=== PATIENT | male | born 1970 | race Caucasian/White ===

== ENCOUNTER 2021-05-15 16:27 | Emergency (ER) | payer BC ==
[2021-05-15] MEDS ORDERED: CASIRIVIMAB/IMDEVIMAB 10 ML VIAL ONE (17:09)
[2021-05-15] MEDS ORDERED: NA CHLORIDE 0.9% 50 ML ONE (17:29)
[2021-05-15] MEDS ORDERED: NA CHLORIDE 0.9% 250 ML ONE (17:29)
--- NOTE | 2021-05-15 18:02 | EDPHYS ---
Physician Documentation [facility] Name: Jose Alexandre Age: 50 yrs Sex: Male : 1970 Arrival Date: 05/15/2021 Time: 16:30 Bed 26 Private MD: ED Physician Vini Daily HPI: 05/15 17:05 This 50 yrs old Male presents to ER via Ambulatory with complaints of covid+, kb antibody infusion. 17:05 The patient or guardian reports cough, that is intermittent, described as mild, kb difficulty breathing. Onset: The symptoms/episode began/occurred 7 day(s) ago. Severity of symptoms: At their worst the symptoms were mild, in the emergency department the symptoms are unchanged. Modifying factors: The symptoms are alleviated by nothing, the symptoms are aggravated by nothing. Associated signs and symptoms: Pertinent positives: fever, sore throat. The patient has not experienced similar symptoms in the past. The patient has not recently seen a physician. Pt reports he tested positive for covid at [place] yesterday. States the dr there told him he needed the monoclonal antibodies as soon as possible. They were out so they couldn't transfuse there. Pt states he has an appt for the infusion tomorrow in [place] but he isn't sure if he will be able to get it because of the weather so he came in here to get it. Historical: - Allergies: 16:40 No Known Allergies; kg - Home Meds: 16:40 None [Active]; kg - PMHx: 16:40 None; kg - PSHx: 16:40 None; kg - Immunization history:: Adult Immunizations not up to date, Client reports having NOT received the Covid vaccine. - Social history:: Smoking status: Patient denies any tobacco usage or history of. Patient uses alcohol, weekly. ROS: 17:04 Abdomen/GI: Negative for abdominal pain, nausea, vomiting, diarrhea, and constipation. kb 17:04 Constitutional: Positive for body aches, chills, fatigue, fever, malaise. 17:04 ENT: Positive for sore throat. 17:04 Respiratory: Positive for cough, shortness of breath. 17:04 All other systems are negative. Exam: 17:04 Constitutional: This is a well developed, well nourished patient who is awake, alert, kb and in no acute distress. Head/Face: Normocephalic, atraumatic. ENT: Moist Mucous membranes Respiratory: Respirations even and unlabored. No increased work of breathing, no retractions or nasal flaring. Skin: Warm, dry with normal turgor. Normal color. MS/ Extremity: Pulses equal, no cyanosis. Neurovascular intact. Full, normal range of motion. Neuro: Awake and alert, GCS 15, oriented to person, place, time, and situation. Moves all extremities. Normal gait. Psych: Awake, alert, with orientation to person, place and time. Behavior, mood, and affect are within normal limits. Vital Signs: 16:37 BP 133 / 80; Pulse 88; Resp 20; Temp 98.0; Pulse Ox 99% on R/A; Weight 123.83 kg (R); kg Height 6 ft. 0 in. (182.88 cm) (R); Pain 4/10; 17:18 BP 123 / 71; Pulse 74; Resp 18; Pulse Ox 95% on R/A; ld1 18:56 BP 126 / 77; Pulse 72; Resp 18; Pulse Ox 96% on R/A; ld1 16:37 Body Mass Index 37.03 (123.83 kg, 182.88 cm) kg MDM: 16:40 Patient medically screened. kb 17:04 Data reviewed: vital signs, nurses notes. Data interpreted: Pulse oximetry: on room air kb is 99 %. Interpretation: normal. Counseling: I had a detailed discussion with the patient and/or guardian regarding: the historical points, exam findings, and any diagnostic results supporting the discharge/admit diagnosis, the need for outpatient follow up, a family practitioner, to return to the emergency department if symptoms worsen or persist or if there are any questions or concerns that arise at home. 05/15 16:40 Order name: IV Start; Complete Time: 17:18 kb Administered Medications: 17:18 Drug: REGEN-COV Dose Pack 120 mg/mL-120 mg/mL (EUA) 1 application Route: IV; Rate: ld1 calculated rate; Site: right antecubital; Disposition Summary: 05/15/21 18:01 Discharge Ordered Location: Home kb Condition: Stable kb Diagnosis - Coronavirus infection, unspecified kb Followup: kb - With: Emergency Department - When: As needed - Reason: Worsening of condition Followup: kb - With: Private Physician - When: 2 - 3 days - Reason: Recheck today's complaints, Continuance of care, Re-evaluation by your physician Discharge Instructions: - Discharge Summary Sheet kb - COVID-19 kb - COVID-19 Frequently Asked Questions kb - 10 Things You Can Do to Manage Your COVID-19 Symptoms at Home - [facility] kb Forms: - Medication Reconciliation Form kb - Thank You Letter kb - Antibiotic Education kb - Prescription Opioid Use kb Addendum: 05/17/2021 07:06 Co-signature as Attending Physician, Vini Daily MD I agree with the assessment and r n plan of care. Attestation: The patient's history, exam findings, diagnostics, and a summary of any interventions or procedures was reviewed in detail with Nimisha CORONADO. Signatures: Nimisha Velasquez, IVONNE REIMBURSEMENT MANAGER-Ckb Vini Daily MD MD rn Dibbern, Lauren, RN RN ld1 Perlita Delgado RN RN kg Corrections: (The following items were deleted from the chart) 05/15 16:41 16:40 PMHx: Unable to Obtain; kg kg
--- NOTE | 2021-05-15 18:02 | ER ---
Nurse's Notes [facility] Name: Jose Alexandre Age: 50 yrs Sex: Male : 1970 Arrival Date: 05/15/2021 Time: 16:30 Bed 26 Private MD: Diagnosis: Coronavirus infection, unspecified Presentation: 05/15 16:37 Chief complaint: Patient states: Covid + yesterday and would like antibody infusion. kg Coronavirus screen: Vaccine status: Patient reports being unvaccinated. Client presents with at least one sign or symptom that may indicate coronavirus-19. Standard/surgical mask placed on the client. Provider contacted for isolation considerations. Client reports previous positive COVID test result. Date of collection: May 15, 2021. Ebola Screen: Patient negative for fever greater than or equal to 101.5 degrees Fahrenheit, and additional compatible Ebola Virus Disease symptoms Patient denies exposure to infectious person. Patient denies travel to an Ebola-affected area in the 21 days before illness onset. Initial Sepsis Screen: Does the patient meet any 2 criteria? No. Patient's initial sepsis screen is negative. Does the patient have a suspected source of infection? No. Patient's initial sepsis screen is negative. Risk Assessment: Do you want to hurt yourself or someone else? Patient reports no desire to harm self or others. Onset of symptoms was May 09, 2021. 16:37 Method Of Arrival: Ambulatory kg 16:37 Acuity: GINGER 4 kg Triage Assessment: 16:40 General: Appears in no apparent distress. Behavior is calm, cooperative, appropriate kg for age, quiet. Pain: Complains of pain in Generalized Pain currently is 4 out of 10 on a pain scale. Quality of pain is described as aching. Historical: - Allergies: 16:40 No Known Allergies; kg - Home Meds: 16:40 None [Active]; kg - PMHx: 16:40 None; kg - PSHx: 16:40 None; kg - Immunization history:: Adult Immunizations not up to date, Client reports having NOT received the Covid vaccine. - Social history:: Smoking status: Patient denies any tobacco usage or history of. Patient uses alcohol, weekly. Screenin:41 Abuse screen: Denies threats or abuse. Denies injuries from another. Nutritional kg screening: No deficits noted. Tuberculosis screening: No symptoms or risk factors identified. Fall Risk None identified. Assessment: 17:18 General: Appears in no apparent distress. comfortable, Behavior is calm, cooperative, ld1 appropriate for age. Pain: Denies pain. Neuro: Level of Consciousness is awake, alert, obeys commands, Oriented to person, place, time, situation, Appropriate for age. Cardiovascular: Capillary refill < 3 seconds Patient's skin is warm and dry. Rhythm is regular. Respiratory: Airway is patent Respiratory effort is even, unlabored, Respiratory pattern is regular, symmetrical. GI: Abdomen is flat, non-distended. : No signs and/or symptoms were reported regarding the genitourinary system. EENT: No signs and/or symptoms were reported regarding the EENT system. Derm: No signs and/or symptoms reported regarding the dermatologic system. Musculoskeletal: No signs and/or symptoms reported regarding the musculoskeletal system. 18:56 Reassessment: Patient appears in no apparent distress at this time. No changes from ld1 previously documented assessment. Patient and/or family updated on plan of care and expected duration. Pain level reassessed. Vital Signs: 16:37 BP 133 / 80; Pulse 88; Resp 20; Temp 98.0; Pulse Ox 99% on R/A; Weight 123.83 kg (R); kg Height 6 ft. 0 in. (182.88 cm) (R); Pain 4/10; 17:18 BP 123 / 71; Pulse 74; Resp 18; Pulse Ox 95% on R/A; ld1 18:56 BP 126 / 77; Pulse 72; Resp 18; Pulse Ox 96% on R/A; ld1 16:37 Body Mass Index 37.03 (123.83 kg, 182.88 cm) kg ED Course: 16:30 Patient arrived in ED. as 16:31 Nimisha Velasquez FNP-C [facility]. kb 16:31 Vini Daily MD is Attending Physician. kb 16:40 Triage completed. kg 16:40 Arm band placed on right wrist. kg 16:41 Patient has correct armband on for positive identification. kg 17:18 No provider procedures requiring assistance completed. Inserted saline lock: 20 gauge ld1 in right antecubital area, using aseptic technique. Blood collected. 18:56 IV discontinued, intact, bleeding controlled, No redness/swelling at site. ld1 Administered Medications: 17:18 Drug: REGEN-COV Dose Pack 120 mg/mL-120 mg/mL (EUA) 1 application Route: IV; Rate: ld1 calculated rate; Site: right antecubital; Outcome: 18:01 Discharge ordered by MD. hernandez 18:56 Discharged to home ambulatory. ld1 18:56 Condition: stable 18:56 Discharge instructions given to patient, Instructed on discharge instructions, follow up and referral plans. Demonstrated understanding of instructions, follow-up care. 18:56 Patient left the ED. ld1 Signatures: Nimisha Velasquez FNP-C FNP-Leidy Menjivar Lauren, RN RN ld1 Perlita Delgado RN RN kg Corrections: (The following items were deleted from the chart) 16:41 16:40 PMHx: Unable to Obtain; kg kg
[2021-05-15 19:31] VITALS: TEMP 98
[2021-05-15 19:34] VITALS: BP 126/77; O2SAT 96
== END 2021-05-15 18:56 | disposition home or self-care (01) ==
LOC: ER 16:27
DX: U07.1 COVID-19 (principal)
CPT/HCPCS: 96374; 99283; J7050